=== PATIENT | male | born 1960 | race African-American/Black ===

== ENCOUNTER 2017-11-10 15:45 | Emergency (ER) | payer OTHER, SELFPAY ==
[2017-11-10 17:02] LABS: ALT (SGPT) 17 U/L (8-55); AST (SGOT) 18 U/L (5-34); Albumin 3.7 g/dL (3.5-5.0); Alkaline Phosphatase 66 U/L (40-150); Anion Gap 10 mmol/L (10-20); BUN (Urea Nitrogen) 7 mg/dL (8.4-25.7); Bilirubin, Total 0.6 mg/dL (0.2-1.2); Calc. Creatinine Clearance 0 mL/min (70-130); Calcium 8.8 mg/dL (7.8-10.44); Carbon Dioxide 25 mmol/L (22-29); Chloride 99 mmol/L (98-107); Estimated GFR-MDRD Greater than 90; Globulin 2.7 g/dL (2.4-3.5); Glucose 114 mg/dL (70-105); Lipase 16 U/L (8-78); Potassium 3.6 mmol/L (3.5-5.1); Protein, Total 6.4 g/dL (6.0-8.3); Sodium 130 mmol/L (136-145)
[2017-11-10 17:06] LABS: CKMB 1.4 ng/mL (0-6.6); Troponin I 0.013 ng/mL (< 0.028)
[2017-11-10 18:02] LABS: #Basophils 0.1 thou/uL (0.0-0.2); #Eosinphils 0.1 thou/uL (0.0-0.7); #Lymphocytes 1.2 thou/uL (1.20-3.40); #Monocytes 0.5 thou/uL (0.11-0.59); %Basophils 0.9 % (0.0-1.0); %Eosinophils 1.6 % (0.0-10.0); %Lymphocytes 13.2 % (21.0-51.0); %Monocytes 5.3 % (0.0-10.0); Hemoglobin 15.4 g/dL (14.0-18.0); Mean Corpuscular HGB CONC 34.7 g/dL (32.0-36.0); Mean Corpuscular Hemoglobin 36.5 pg (27.0-31.0); Mean Platelet Volume 5.7 fL (7.4-10.4); Platelet Count 281 thou/uL (130-400); RBC Distribution Width 12.3 % (11.5-14.5); Red Blood Cell (RBC) Count 4.23 mill/uL (4.70-6.10); White Blood Cell (WBC) Count 8.9 thou/uL (4.8-10.8)
--- NOTE | 2017-11-10 18:28 | RAD ---
CHEST ONE VIEW: 11/10/17 HISTORY: Syncope. COMPARISON: 05/06/16. FINDINGS: cardiac silhouette is magnified by projection. Pulmonary vasculature is unremarkable. Mediastinum is midline. There is no lobar consolidation, or evidence of pneumothorax. Subtle density projecting over the right base is favored to represent a confluence of shadows of the anterior and posterior ribs an d the pulmonary vasculature. IMPRESSION: No active cardiopulmonary abnormalities are demonstrated. POS: [facility]
[2017-11-10] MEDS ORDERED: Magnesium Sulfate 2 GM/100 ML BAG ONE (18:49)
--- NOTE | 2017-11-10 20:49 | CT ---
CT HEAD WITHOUT CONTRAST: 11/10/17 Multiple axial tomograms obtained through the head without IV enhancement. HISTORY: Injury. Comparison made to head CT of 07/29/16. Mild chronic ischemic white matter changes appear stable. No acute intracranial hemorrhage identified . No mass or infarct. IMPRESSION: No evidence of acute process. POS: [facility]
--- NOTE | 2017-11-10 20:52 | CT ---
CT CERVICAL SPINE: 11/10/17 Multiple axial tomograms obtained through the cervical spine with multiplanar reconstruction. HISTORY: Injury to neck. Neck pain. Cervical vertebrae maintain height. There are mild degenerative changes. Slight posterior subluxation at C3-4. No evidence of cervical spine fracture. IMPRESSION: No evidence of cervical spine fracture. POS: [facility]
--- NOTE | 2017-12-04 00:24 | EKG ---
Test Reason : SYNCOPE Blood Pressure : / mmHG Vent. Rate : 079 BPM Atrial Rate : 079 BPM P-R Int : 158 ms QRS Dur : 100 ms QT Int : 442 ms P-R-T Axes : 067 -20 038 degrees QTc Int : 506 ms Normal sinus rhythm Incomplete right bundle branch block Prolonged QT Abnormal ECG Confirmed by DEDE URIOSTEGUI ([id number]), offline editor IVORY NUNEZ ([id number] on 12/04/2017 12:24:05 AM Referred By: Confirmed By:DEDE URIOSTEGUI
== END 2017-11-10 20:09 | disposition home or self-care (01) ==
LOC: ERS 15:45
DX: S00.03XA Contusion of scalp, initial encounter (principal); R55 Syncope and collapse; F17.210 Nicotine dependence, cigarettes, uncomplicated; Z71.6 Tobacco abuse counseling; W01.10XA Fall on same level from slipping, tripping and stumbling with subsequent striking against unspecified object, initial encounter; Y99.0 Civilian activity done for income or pay
CPT/HCPCS: 36415; 70450; 71045; 72125; 80053; 82553; 83690; 84484; 85025; 93005; 94760; 96365; 96366; 99406; J3475

== ENCOUNTER 2018-01-14 14:53 | Emergency (ER) | payer SELFPAY ==
[2018-01-14 15:21] LABS: Lavender RECEIVED; Red RECEIVED
[2018-01-14 15:24] LABS: #Eosinphils 0.1 thou/uL (0.0-0.7); #Lymphocytes 1.5 thou/uL (1.20-3.40); #Monocytes 0.5 thou/uL (0.11-0.59); #Neutrophils 3.9 thou/uL (1.40-6.50); %Basophils 0.8 % (0.0-1.0); %Eosinophils 1.7 % (0.0-10.0); %Lymphocytes 25.2 % (21.0-51.0); %Monocytes 7.4 % (0.0-10.0); Hemoglobin 16.3 g/dL (14.0-18.0); Mean Corpuscular Hemoglobin 36.5 pg (27.0-31.0); Mean Platelet Volume 5.3 fL (7.4-10.4); Platelet Count 291 thou/uL (130-400); RBC Distribution Width 12.3 % (11.5-14.5); Red Blood Cell (RBC) Count 4.47 mill/uL (4.70-6.10); White Blood Cell (WBC) Count 6.1 thou/uL (4.8-10.8)
[2018-01-14 15:47] LABS: ALT (SGPT) 17 U/L (8-55); AST (SGOT) 16 U/L (5-34); Alkaline Phosphatase 88 U/L (40-150); Anion Gap 16 mmol/L (10-20); BUN (Urea Nitrogen) 6 mg/dL (8.4-25.7); Bilirubin, Total 0.8 mg/dL (0.2-1.2); Calc. Creatinine Clearance 0 mL/min (70-130); Carbon Dioxide 20 mmol/L (22-29); Chloride 98 mmol/L (98-107); Estimated GFR-MDRD Greater than 90; Globulin 2.8 g/dL (2.4-3.5); Glucose 143 mg/dL (70-105); Potassium 3.3 mmol/L (3.5-5.1); Protein, Total 6.8 g/dL (6.0-8.3); Sodium 131 mmol/L (136-145)
--- NOTE | 2018-01-14 15:57 | CT ---
CT BRAIN: Date: 12/1917 HISTORY: Fall, seizures. TECHNIQUE: Noncontrast enhanced CT images of brain obtained. Comparison made to previous exam from 11/10/17. FINDINGS: Noncontrast enhanced CT images of the brain demonstrate the brain to be unremarkable. No evidence of intracranial masses, hemorrhages, strokes, or contusions seen. The ventricles are of normal size. IMPRESSION: Normal CT brain. POS: [facility]
--- NOTE | 2018-01-14 16:01 | RAD ---
AP VIEW CHEST: Date: 01/14/18 HISTORY: Fall. FINDINGS: AP view of chest obtained. Comparison made to previous exam from 11/10/17. AP view of chest demonstrates the lungs to be well aerated. No evidence of active intrathoracic disea se seen. No evidence of effusions, pneumonia, or pneumothorax seen. IMPRESSION: Unremarkable AP view chest. POS: [facility]
[2018-01-14] MEDS ORDERED: levETIRAcetam 500 MG/100 ML PREMIX BAG ONE (16:18)
[2018-01-14] MEDS ORDERED: levETIRAcetam 500 MG TAB PO SCH (16:30)
== END 2018-01-14 18:40 | disposition home or self-care (01) ==
LOC: ERS 14:53
DX: R56.9 Unspecified convulsions (principal); F17.210 Nicotine dependence, cigarettes, uncomplicated; Z71.6 Tobacco abuse counseling
CPT/HCPCS: 36415; 70450; 71045; 80053; 83735; 85025; 93005; 94760; 96360; 99406; J1953

== ENCOUNTER 2018-05-02 11:51 | Emergency (ER) | payer SELFPAY ==
--- NOTE | 2018-05-02 13:04 | CT ---
CT BRAIN NONCONTRAST: HISTORY: A 58-year-old male, status post head trauma from fall due to syncope due to seizure. FINDINGS: There is no midline shift or any other mass effect. There is no evidence of acute intracranial hemor rhage, large cortical infarct, obstructive hydrocephalus, or extraaxial fluid collection. The calvar ium is intact. There is a right upper lateral parietal scalp hematoma. There is a round metallic fo reign body, apparently a BB, embedded in the soft tissues lateral to the right temporal bone, anterio r and superior to the right external auditory canal. IMPRESSION: 1. No acute intracranial findings. 2. Acute, traumatic right superficial soft tissue scalp hematoma. [email or web address] [] POS: [facility]
--- NOTE | 2018-05-02 13:18 | CT ---
CT CERVICAL SPINE WITHOUT CONTRAST: HISTORY: Trauma. Possible seizure at work. COMPARISON: 11/10/2017 and 07/29/2016 FINDINGS: There is no craniocervical dissociation. The lateral masses of C1 and C2 articulate appropriately. Intact odontoid process. Appropriate articulation of the facets. There is no prevertebral soft tissue swelling or epidural hematoma. There are varying degrees of josselin tral canal stenosis and foraminal narrowing, on the basis of degenerative change. The upper mediastinum and lung apices are unremarkable. At the right tonsillar pillar, there is increased soft tissue density with a submucosal hypodensity, measuring 1.2 x 0.9 cm. A submucosal neoplasm cannot be excluded. Nonemergent ENT consultation. Cervical spine vertebral body height is maintained. There is no cervical spine fracture. There is a nonspecific metallic density in the posterior left neck soft tissues, unchanged from Decem rafael 2016. IMPRESSION: 1. No cervical spine fracture. 2. Asymmetric soft tissue prominence in the oral cavity, at the level of the tonsillar pillar. The possibility of a submucosal mass in the right tonsillar pillar is suspected. Non-emergent ENT consul tation. The results of the study were discussed with Dr. Diaz on 05/02/2018 at 12:48 p.m. CODE CR POS: [facility]
[2018-05-02] MEDS ORDERED: Acetaminophen 500 MG TAB ONE (14:35)
== END 2018-05-02 14:43 | disposition home or self-care (01) ==
LOC: ERS 11:51
DX: S06.9X9A Unspecified intracranial injury with loss of consciousness of unspecified duration, initial encounter (principal); S00.03XA Contusion of scalp, initial encounter; R56.9 Unspecified convulsions; F17.210 Nicotine dependence, cigarettes, uncomplicated; Z79.899 Other long term (current) drug therapy; X58.XXXA Exposure to other specified factors, initial encounter
CPT/HCPCS: 70450; 72125